=== PATIENT | female | born 1935 | race Two or more races ===

== ENCOUNTER 2020-03-15 13:30 | Inpatient (IN) | payer MEDICARE, BC ==
[~2020-03-15] VITALS: Ht 167.6 cm; Wt 67.6 kg
--- NOTE | 2020-03-15 13:41 | NUR ---
ZULEMA SENIOR [employer] NET DEVELOPER AT BEDSIDE FOR EVAL
[2020-03-15 13:59] LABS: BASOPHILS % (AUTO) 0.3 % (0.0-2.0); EOSINOPHILS % (AUTO) 0.3 % (0.0-6.0); HEMATOCRIT 38 % (33-45); HEMOGLOBIN 12.4 g/dL (11.5-14.8); LYMPHOCYTES # (AUTO) 0.8 /CMM (0.8-4.8); LYMPHOCYTES % (AUTO) 7.1 % (20.0-44.0); MEAN CORPUSCULAR HGB CONC 33 g/dl (31.0-36.0); MEAN CORPUSCULAR VOLUME 86 fL (82-100); MONOCYTES # (AUTO) 0.8 /CMM (0.1-1.30); MONOCYTES % (AUTO) 7.1 % (2.0-12.0); NEUTROPHILS # (AUTO) 10.1 /CMM (1.8-8.9); NEUTROPHILS % (AUTO) 85.2 % (43.0-81.0); PLATELET COUNT (AUTO) 271 /CMM (150-450); RED BLOOD CELL COUNT(AUTO) 4.38 MIL/uL (4.0-5.2); WHITE BLOOD COUNT (AUTO) 11.8 K/uL (4.3-11.0)
[2020-03-15] MEDS ORDERED: MORPHINE SULFATE INJ 2 MG/ML DISP.SYRIN IV ONE (14:00)
[2020-03-15] MEDS ORDERED: ONDANSETRON HCL/PF 4 MG/2 ML VIAL IV ONE (14:00)
[2020-03-15] MEDS ORDERED: ONDANSETRON HCL/PF 4 MG/2 ML VIAL ONE (14:06)
[2020-03-15] MEDS ORDERED: MORPHINE SULFATE INJ 4 MG/ML DISP.SYRIN ONE (14:07)
[2020-03-15 14:09] LABS: CREATININE 0.9 mg/dL (0.6-1.3)
--- NOTE | 2020-03-15 14:10 | NUR ---
RADIOLOGY AT BEDSIDE FOR R HIP AND CHEST XRAY.
[2020-03-15 14:19] LABS: CALCIUM, SERUM 10.3 mg/dL (8.5-10.1)
[2020-03-15] MEDS ORDERED: MONT10TA22 PO (14:36)
--- NOTE | 2020-03-15 14:42 | NUR ---
ORTHO ON-CALL PAGED
[2020-03-15] MEDS ORDERED: HYDROMORPHONE 1 MG/1 ML DISP.SYRIN ONE (14:55)
[2020-03-15] MEDS ORDERED: HYDROMORPHONE 1 MG/1 ML DISP.SYRIN IV ONE (15:00)
[2020-03-15] MEDS ORDERED: HYDROCODONE/APAP 10/325MG 1 EA TABLET PO PRN (16:00)
[2020-03-15] MEDS ORDERED: MAG HYDROX/AL HYDROX/SIMETH 30 ML UDC PO PRN (16:00)
[2020-03-15] MEDS ORDERED: ZOLPIDEM TARTRATE 5 MG TABLET PO PRN (16:00)
[2020-03-15] MEDS ORDERED: ACETAMINOPHEN 325 MG TABLET PO PRN (16:00)
[2020-03-15] MEDS ORDERED: Z GUARD REMEDY 2 OZ OINT TP PRN (16:00)
[2020-03-15] MEDS ORDERED: HYDROCODONE/APAP 5/325MG 1 EACH TABLET PO PRN (16:00)
--- NOTE | 2020-03-15 16:12 | NUR ---
REPORT GIVEN TO PHILIP. WARE AWAITING TRANSFER TO FLOOR.
--- NOTE | 2020-03-15 16:28 | NUR ---
IVAN,SON, CALLED TO GET AN UPDATE, IVETTSALBARO,, CALLED FOR UPDATE ON SURGEON/SURGERY
[2020-03-15 17:00] VITALS: BP 155/84
--- NOTE | 2020-03-15 17:00 | NUR ---
M/S MANAGER OF APPLICATION DEVELOPMENT: ADMISSION ADMITTED THIS 84 YEAR OLD FEMALE PT FROM [facility] WITH DX: RIGHT FEMORAL HEAD FRACTURE. AWAKE, A/OX4. SAFELY TRANSFERRED TO BED WITH 4 ASSISTANCE. PROVIDED WITH A HOSPITAL GOWN, KEPT COMFORTABLE. SKIN ASSESSMENT COMPLETED AND PHOTOS TAKEN. ORIENTED TO ROOM AND SURROUNDINGS. DINNER ORDERED. VSS. INSTRUCTED TO CALL FOR ASSISTANCE. WILL CONTINUE TO MONITOR.
[2020-03-15] MEDS: ENOXAPARIN SODIUM 40 MG/0.4 ML DISP.SYRIN SQ SCH (18:15)
--- NOTE | 2020-03-15 18:30 | NUR ---
M/S BIOINFORMATICS SPECIALIST: NOTES PT HAS NO APPETITE. FLUIDS GIVEN. NEEDS ATTENDED. INSTRUCTED TO CALL FOR ASSISTANCE.
--- NOTE | 2020-03-15 19:00 | NUR ---
M/S MUSHROOM GROWER: NOTES REPORT GIVEN TO PIOTR (RN) FOR CONTINUITY OF CARE.
[2020-03-15 20:00] VITALS: BP 123/89
--- NOTE | 2020-03-15 20:00 | NUR ---
PT IN BED ALERT AND ORIENTED X4, ROOM AIR, S/P FALL, COMPLAINING OF PAIN, PETERSEN CATHETER, FALL PRECAUTION, WILL CONTINUE TO MONITOR
[2020-03-15 22:00] VITALS: BP 123/89
[2020-03-15] MEDS: IV NS 0.9% 1,000 ML IV PRN (22:04)
[2020-03-15] MEDS: ONDANSETRON HCL/PF 4 MG/2 ML VIAL IVP PRN (22:20)
[2020-03-15] MEDS: HYDROMORPHONE INJ 2 MG/ML DISP.SYRIN IV PRN (22:20)
[2020-03-16] MEDS: HYDROMORPHONE INJ 2 MG/ML DISP.SYRIN IV PRN ×2 (05:43→14:40)
--- NOTE | 2020-03-16 06:30 | NUR ---
ALERT AND ORIENTED X4, ROOM AIR, S/P FALL, WITH RIGHT HIP FRACTURE, EPISODE OF NAUSEA, RELIEVED BY ZOFRAN, GIVEN DILAUDID 1 MG IVPB X2 WITH ADEQUATE RELIEF, NS AT 75 ML/HR, PETERSEN CATHETER DRAINING WELL, PLANNED RIGHT HIP HEMIARTHROPLASTY, NEEDS CONSENT.
[2020-03-16 08:00] VITALS: BP 145/75
--- NOTE | 2020-03-16 08:00 | NUR ---
RECEIVED PT. THIS AM SOME NAUSEA,SOME DISCOMFORT.VS STABLE.IV INFUSING.
[2020-03-16 08:16] LABS: THYROID STIMULATING HORMONE 3.079 uIU/mL (0.358-3.74)
[2020-03-16 08:20] LABS: CALCIUM, SERUM 9.7 mg/dL (8.5-10.1); CREATININE 0.6 mg/dL (0.6-1.3); PHOSPHORUS 3.1 mg/dL (2.5-4.9); POTASSIUM 4.3 mmol/L (3.5-5.1)
[2020-03-16] MEDS: ONDANSETRON HCL/PF 4 MG/2 ML VIAL IVP PRN ×3 (08:54→22:54)
[2020-03-16] MEDS: MONTELUKAST SODIUM (10MG) 10 MG TABLET PO SCH (09:00)
[2020-03-16 09:58] LABS: BASOPHILS # (AUTO) 0.1 /CMM (0.0-0.2); BASOPHILS % (AUTO) 0.7 % (0.0-2.0); EOSINOPHILS % (AUTO) 2.1 % (0.0-6.0); HEMATOCRIT 34 % (33-45); HEMOGLOBIN 11.2 g/dL (11.5-14.8); LYMPHOCYTES # (AUTO) 1.8 /CMM (0.8-4.8); LYMPHOCYTES % (AUTO) 20.5 % (20.0-44.0); MEAN CORPUSCULAR HGB CONC 33 g/dl (31.0-36.0); MEAN CORPUSCULAR VOLUME 86 fL (82-100); MONOCYTES # (AUTO) 0.7 /CMM (0.1-1.30); MONOCYTES % (AUTO) 8.2 % (2.0-12.0); NEUTROPHILS % (AUTO) 68.5 % (43.0-81.0); PLATELET COUNT (AUTO) 258 /CMM (150-450); RED BLOOD CELL COUNT(AUTO) 3.93 MIL/uL (4.0-5.2); WHITE BLOOD COUNT (AUTO) 8.7 K/uL (4.3-11.0)
--- NOTE | 2020-03-16 10:30 | NUR ---
DR. SOLIS IN RN MENTIONED SOME NAUSEA POSSIBLY DUE TO DILAUDID. NO CHANGES.
[2020-03-16] MEDS: IV NS 0.9% 1,000 ML IV PRN (11:11)
[2020-03-16 16:00] VITALS: BP 132/72
--- NOTE | 2020-03-16 18:30 | NUR ---
MED. X 2 FOR NAUSEA AND X 1 FOR PAIN.FAMILY CALLING IN OFTEN. PT. ON PHONE MOST OF DAY WITH FAMILY.CONSENTS SIGNED.PLANS FOR SURG. TOMORROW.TO BE NPO AFTER MIDNIGHT.
--- NOTE | 2020-03-16 19:26 | NUR ---
MS RN: RECEIVED PATIENT Patient in bed, awake. On room air, tolerating well. Reports some discomfort in her right hip when she change position in bed. Plan for surgery tomorrow. IVF infusing. Jacobson cath to gravity. Fall precaution maintained.
[2020-03-16 20:00] VITALS: BP 145/75
[2020-03-16 20:30] VITALS: BP 145/75
[2020-03-16] MEDS: ENOXAPARIN SODIUM 40 MG/0.4 ML DISP.SYRIN SQ SCH (21:00)
[2020-03-16] MEDS: MAGNESIUM HYDROXIDE 30 ML UDC PO PRN (21:05)
[2020-03-17] VITALS (11 sets, daily range): BP systolic 118–172; BP diastolic 61–90
[2020-03-17] MEDS: HYDROMORPHONE INJ 2 MG/ML DISP.SYRIN IV PRN ×3 (05:17→22:11)
[2020-03-17] MEDS: ONDANSETRON HCL/PF 4 MG/2 ML VIAL IVP PRN (05:20)
[2020-03-17] MEDS: IV NS 0.9% 1,000 ML IV PRN (05:21)
--- NOTE | 2020-03-17 06:27 | NUR ---
MS RN: END OF SHIFT REPORT Patient in bed, stable Oxygen saturation in room air. IVF infusing, NPO MN. Right hip pain managed with PRN Dilaudid. Plan for procedure Right hip hemiarthroplasty today, patient consented procedure. Fall precaution maintained.
--- NOTE | 2020-03-17 07:30 | NUR ---
MS/RN Opening note Received patient in bed, AO x 3, able to responds all stimuli. Denies pain or any discomfort. Respiratory even and unlabored in room air. Skin is warm to touch, kept clean/dry, intact IV site running NS at 75 ml, no s/s of over fluid observed. Patient going orthoplasty procedure at 0800, stable in condition and v/s. Call light within reach, will continue to monitor
[2020-03-17] MEDS ORDERED: BACITRACIN 50000 UNITS/VIAL ONE ×2 (07:37→08:42)
[2020-03-17] MEDS ORDERED: BUPIVACAINE 0.5 % PF 150 MG/30 ML VIAL ONE (07:37)
[2020-03-17] MEDS ORDERED: ANESTHESIA TRAY IN PYXIS 1 EA TRAY MC ONE (07:38)
[2020-03-17] MEDS ORDERED: ROCURONIUM BROMIDE 50 MG/5 ML ONE (07:45)
[2020-03-17] MEDS ORDERED: FENTANYL PF 100MCG/2ML AMPUL ONE ×2 (07:45→10:42)
[2020-03-17 07:51] LABS: BASOPHILS # (AUTO) 0.1 /CMM (0.0-0.2); EOSINOPHILS % (AUTO) 3.4 % (0.0-6.0); HEMATOCRIT 33 % (33-45); HEMOGLOBIN 10.7 g/dL (11.5-14.8); LYMPHOCYTES # (AUTO) 1.8 /CMM (0.8-4.8); MEAN CORPUSCULAR HGB CONC 33 g/dl (31.0-36.0); MEAN CORPUSCULAR VOLUME 86 fL (82-100); MONOCYTES # (AUTO) 0.8 /CMM (0.1-1.30); MONOCYTES % (AUTO) 10.4 % (2.0-12.0); NEUTROPHILS # (AUTO) 5.2 /CMM (1.8-8.9); NEUTROPHILS % (AUTO) 63.2 % (43.0-81.0); PLATELET COUNT (AUTO) 266 /CMM (150-450); RED BLOOD CELL COUNT(AUTO) 3.79 MIL/uL (4.0-5.2); WHITE BLOOD COUNT (AUTO) 8.2 K/uL (4.3-11.0)
--- NOTE | 2020-03-17 08:00 | NUR ---
Patient left procedure accompanied by 2 staff, in stable condition, v/s:bp-140/72, p-76, r-18, t-98.1, p-95.
[2020-03-17 08:11] LABS: CREATININE 0.6 mg/dL (0.6-1.3); PHOSPHORUS 2.1 mg/dL (2.5-4.9)
[2020-03-17] MEDS: MONTELUKAST SODIUM (10MG) 10 MG TABLET PO SCH (08:48)
[2020-03-17] MEDS ORDERED: TRANEXAMIC ACID 1,000 MG in IV NS 0.9% 50 ML IV ONE (09:00)
[2020-03-17] MEDS ORDERED: VANCOMYCIN 1 GM VIAL ONE (09:49)
[2020-03-17 10:49] LABS: BASOPHILS # (AUTO) 0.1 /CMM (0.0-0.2); BASOPHILS % (AUTO) 0.5 % (0.0-2.0); HEMATOCRIT 34 % (33-45); LYMPHOCYTES % (AUTO) 7.2 % (20.0-44.0); MEAN CORPUSCULAR HGB CONC 32 g/dl (31.0-36.0); MEAN CORPUSCULAR VOLUME 87 fL (82-100); MONOCYTES # (AUTO) 0.5 /CMM (0.1-1.30); NEUTROPHILS # (AUTO) 11.7 /CMM (1.8-8.9); NEUTROPHILS % (AUTO) 87.3 % (43.0-81.0); PLATELET COUNT (AUTO) 255 /CMM (150-450); RED BLOOD CELL COUNT(AUTO) 3.93 MIL/uL (4.0-5.2); WHITE BLOOD COUNT (AUTO) 13.4 K/uL (4.3-11.0)
[2020-03-17] MEDS ORDERED: MIDAZOLAM HCL 2 MG/2ML VIAL ONE (10:54)
[2020-03-17] MEDS ORDERED: HYDROCODONE/APAP 5/325MG 1 EACH TABLET PO PRN (11:30)
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
[2020-03-17] MEDS ORDERED: HALOPERIDOL DECANOATE IM 100 MG/ML AMPUL IM ONE (12:30)
[2020-03-17] MEDS: IV LR 1000 ML 1,000 ML IV PRN (12:44)
[2020-03-17] MEDS ORDERED: HALOPERIDOL LACTATE INJ 5 MG/ML VIAL IM ONE (14:00)
[2020-03-17] MEDS ORDERED: K PHOS NEUTRAL 250 MG TABLET PO ONE (15:30)
[2020-03-17] MEDS: CEFAZOLIN 2 GM in IV D5W 100 ML IV SCH (17:24)
--- NOTE | 2020-03-17 18:30 | NUR ---
MS/RN Closing note Patient in bed, sleeping comfortably. Given pain medication around 1730 for s/p orthoplasty, skin is warm to touch, kept clean/dry, intact IV site. Respiratory even and unlabored with room air, no sob observed. Vital sign stable. Call light within reach, will endorse assembler 1st shift.
--- NOTE | 2020-03-17 19:40 | NUR ---
MS RN OPENING NOTES RECEIVED PATIENT RESTING IN BED COMFORTABLY; A/OX2-3, FORGETFUL; PATIENT ON ROOM AIR, NO SOB NOTED; TOLERATING ROOM AIR WELL; BREATHING EVEN AND UNLABORED; PER AM SHIFT, HALDOL WAS GIVEN, WILL MONITOR; L FA # 22 RUNNING NS @ 75ML/HR, TOLERATING IVF WELL; PETERSEN INTACT; FLOWING YELLOW OUTPUT; SAFETY PRECAUTIONS IN PLACE; BED LOCKED IN LOW POSITION; SIDE RAILS X2; CALL LIGHT WITHIN REACH; WILL CONTINUE TO MONITOR
[2020-03-18] MEDS: CEFAZOLIN 2 GM in IV D5W 100 ML IV SCH (01:40)
[2020-03-18] MEDS: HYDROMORPHONE INJ 2 MG/ML DISP.SYRIN IV PRN ×5 (02:10→20:25)
[2020-03-18] MEDS: ONDANSETRON HCL/PF 4 MG/2 ML VIAL IVP PRN (02:20)
--- NOTE | 2020-03-18 06:36 | NUR ---
MS RN CLOSING NOTES PATIENT RESTING IN BED COMFORTABLY; A/OX2-3, FORGETFUL; BREATHING EVEN AND UNLABORED; NO SOB NOTED; PATIENT TOLERATING ROOM AIR WELL; L FA #22 INFUSING LR @ 75ML/HR; PATIENT TOLERATING IVF WELL; PETERSEN CATH IN PLACE; FLOWING YELLOW OUTPUT; ALL NEEDS RENDERED; PATIENT ABLE TO MAKE NEEDS KNOWN; SAFETY PRECAUTIONS IN PLACE; BED LOCKED IN LOW POSITION; SIDE RAILS X2; CALL LIGHT WITHIN REACH; WILL ENDORSE WOODY TO ONCOMING NURSE
--- NOTE | 2020-03-18 07:30 | NUR ---
MS/RN Opening note Received patient AO x 2-3, confused and forgetful, able to responds all stimuli. Pt stated pain occasionally on s/p right hip orthoplasty. Skin is warm to touch, clean/dry. Respiratory even and unlabored with room air. kept lower position of the bed with locked wheel for safety, call light within reach, will continue to monitor.
[2020-03-18 08:00] VITALS: BP 132/74
[2020-03-18 08:37] LABS: BASOPHILS % (AUTO) 0.4 % (0.0-2.0); EOSINOPHILS % (AUTO) 0.5 % (0.0-6.0); HEMATOCRIT 32 % (33-45); HEMOGLOBIN 10.6 g/dL (11.5-14.8); LYMPHOCYTES # (AUTO) 1.3 /CMM (0.8-4.8); LYMPHOCYTES % (AUTO) 14.7 % (20.0-44.0); MEAN CORPUSCULAR HGB CONC 33 g/dl (31.0-36.0); MEAN CORPUSCULAR VOLUME 86 fL (82-100); MONOCYTES # (AUTO) 1.2 /CMM (0.1-1.30); MONOCYTES % (AUTO) 13.2 % (2.0-12.0); NEUTROPHILS # (AUTO) 6.5 /CMM (1.8-8.9); NEUTROPHILS % (AUTO) 71.2 % (43.0-81.0); PLATELET COUNT (AUTO) 259 /CMM (150-450); RED BLOOD CELL COUNT(AUTO) 3.68 MIL/uL (4.0-5.2); WHITE BLOOD COUNT (AUTO) 9.1 K/uL (4.3-11.0)
[2020-03-18 08:55] LABS: ALBUMIN 2.9 g/dL (3.4-5.0); BILIRUBIN,TOTAL 0.5 mg/dL (0.2-1.0); CALCIUM, SERUM 9.1 mg/dL (8.5-10.1); CREATININE 0.6 mg/dL (0.6-1.3); PHOSPHORUS 3.1 mg/dL (2.5-4.9); POTASSIUM 3.9 mmol/L (3.5-5.1); TOTAL PROTEIN, SERUM 6.3 g/dL (6.4-8.2)
[2020-03-18] MEDS: MONTELUKAST SODIUM (10MG) 10 MG TABLET PO SCH (09:38)
[2020-03-18] MEDS: ENOXAPARIN SODIUM 40 MG/0.4 ML DISP.SYRIN SQ SCH (09:40)
--- NOTE | 2020-03-18 10:38 | NUR ---
WOUND CARE CONSULT: PT PRESENTS WITH RT ELBOW DRY ABRASION, PRESENT ON ADMISSION. PT IS CONTINENT AT THIS TIME. RT HIP SURGICAL DRESSING DRY AND INTACT. DISCUSSED SKIN PROTECTION WITH NURSING STAFF. WILL SEE PRN. KIRKLAND IN AGREEMENT WITH PLAN OF CARE. CURRENT TRAE SCORE IS 16. Addendum: 03/18/20 at 1039 by SPEEDY ESPARZA WNDNU Amended: Links added.
[2020-03-18] MEDS: IV LR 1000 ML 1,000 ML IV PRN (12:42)
[2020-03-18 16:00] VITALS: BP 144/72
--- NOTE | 2020-03-18 18:45 | NUR ---
MS/RN Closing note Patient in bed comfortably, does no c/o pain or any this comfort related s/p orthoplasty on right hip. Skin is warm to touch, kept clean/dry, intact IV site. Respiratory even and unlabored in room air. Keep lower position of the bed with locked wheel. Call light within reach, will endorse warehouse shift supervisor.
--- NOTE | 2020-03-18 19:35 | NUR ---
MS RN OPENING NOTES PATIENT RECEIVED RESTING IN BED COMFORTABLY; A/OX3; BREATHING EVEN AND UNLABORED; TOLERATING ROOM AIR WELL; NO SOB NOTED; NO S/S OF ACUTE RESPIRATORY DISTRESS; L FA # 22 INFUSING LR @ 75ML/HR; TOLERATING IVF WELL; SAFETY PRECAUTIONS IMPLEMENTED; BED LOCKED IN LOW POSITION; SIDE RAILS X2; CALL LIGHT WITHIN REACH; WILL CONTINUE TO MONITOR
[2020-03-18 20:00] VITALS: BP 147/62
[2020-03-18 20:33] VITALS: BP 147/62
[2020-03-19] MEDS: ONDANSETRON HCL/PF 4 MG/2 ML VIAL IVP PRN (00:16)
--- NOTE | 2020-03-19 00:25 | NUR ---
MS RN NOTES PATIENT REPORTED FEELING NAUSEATED; NO EMESIS PRESENT; ZOFRAN ADMINISTERED ORDERED; PATIENT WOULD LIKE TO WAIT PRIOR TO RECEIVING PAIN MEDICATION; PATIENT WOULD LIKE TO SEE IF SHE IS ABLE TO CONTROL PAIN WITHOUT PAIN MEDICATIONS Q3HRS; WILL CONTINUE TO MONITOR AND ASSESS
[2020-03-19] MEDS: HYDROMORPHONE INJ 2 MG/ML DISP.SYRIN IV PRN ×2 (03:25→15:10)
[2020-03-19] MEDS: IV LR 1000 ML 1,000 ML IV PRN (05:00)
--- NOTE | 2020-03-19 06:28 | NUR ---
MS RN CLOSING NOTES PATIENT RESTING IN BED COMFORTABLY; A/OX3; BREATHING EVEN AND UNLABORED; NO SOB NOTED; NO DISTRESS NOTED; L FA #22 INFUSING LR @ 75ML/HR; PATIENT TOLERATING IVF WELL; IV SITE INTACT AND PATENT, FLUSHING WELL; NO S/S OF REDNESS OR INFILTRATION NOTED; ALL NEEDS RENDERED; PATIENT TOLERATING DIAPER CHANGE DURING SHIFT WITH MINIMAL PAIN MEDICATION; ALL NEEDS RENDERED; SAFETY PRECAUTIONS IN PLACE; SIDE RAILS X2; CALL LIGHT WITHIN REACH; WILL ENDORSE WOODY TO ONCOMING NURSE
--- NOTE | 2020-03-19 07:25 | NUR ---
MS RN NOTES ALERT AND AWAKE ORIENTED X2-3. PATIENT WITH EPISODES OF FORGETFULNESS. HOB ELEVATED. NO SOB. DENIES ANY C/O PAIN NOR DISCOMFORT. LEFT FA #22 INTACT AND PATENT INFUSING LR @ 75ML/HR CHARO WELL. BED IN LOWEST POSITION, LOCKED. BED ALARM ON. CALL LIGHT WITHIN REACH. ABLE TO VERBALIZE NEEDS.
[2020-03-19 08:00] VITALS: BP 135/67
[2020-03-19 08:34] LABS: BASOPHILS % (AUTO) 0.5 % (0.0-2.0); EOSINOPHILS % (AUTO) 0.9 % (0.0-6.0); HEMATOCRIT 31 % (33-45); HEMOGLOBIN 10.4 g/dL (11.5-14.8); LYMPHOCYTES # (AUTO) 1.5 /CMM (0.8-4.8); LYMPHOCYTES % (AUTO) 18.2 % (20.0-44.0); MEAN CORPUSCULAR HGB CONC 33 g/dl (31.0-36.0); MEAN CORPUSCULAR VOLUME 85 fL (82-100); MONOCYTES # (AUTO) 0.9 /CMM (0.1-1.30); MONOCYTES % (AUTO) 11.6 % (2.0-12.0); NEUTROPHILS # (AUTO) 5.6 /CMM (1.8-8.9); NEUTROPHILS % (AUTO) 68.8 % (43.0-81.0); PLATELET COUNT (AUTO) 239 /CMM (150-450); RED BLOOD CELL COUNT(AUTO) 3.68 MIL/uL (4.0-5.2); WHITE BLOOD COUNT (AUTO) 8.1 K/uL (4.3-11.0)
[2020-03-19] MEDS: MONTELUKAST SODIUM (10MG) 10 MG TABLET PO SCH (08:44)
[2020-03-19] MEDS: ENOXAPARIN SODIUM 40 MG/0.4 ML DISP.SYRIN SQ SCH (08:45)
[2020-03-19] MEDS: MAGNESIUM HYDROXIDE 30 ML UDC PO PRN (08:46)
[2020-03-19 08:48] LABS: ALANINE AMINOTRANSFERASE 18 U/L (12-78); ALBUMIN 2.6 g/dL (3.4-5.0); ALKALINE PHOSPHATASE 58 U/L (46-116); ASPARTATE AMINOTRANSFERASE 23 U/L (15-37); BILIRUBIN,TOTAL 0.5 mg/dL (0.2-1.0); CARBON DIOXIDE 31 mmol/L (21-32); CHLORIDE 98 mmol/L (98-107); CREATININE 0.5 mg/dL (0.6-1.3); GLUCOSE 112 mg/dL (74-106); MAGNESIUM 1.9 mg/dL (1.8-2.4); PHOSPHORUS 2.2 mg/dL (2.5-4.9); POTASSIUM 3.8 mmol/L (3.5-5.1); SODIUM SERUM 133 mmol/L (136-145); TOTAL PROTEIN, SERUM 6.1 g/dL (6.4-8.2); UREA NITROGEN, BLOOD 10 mg/dL (7-18)
[2020-03-19] MEDS ORDERED: K PHOS NEUTRAL 250 MG TABLET PO ONE (11:30)
[2020-03-19] MEDS ORDERED: ENOX40DI SQ (14:50)
[2020-03-19 15:54] VITALS: BP 120/66
--- NOTE | 2020-03-19 19:36 | NUR ---
MS RN NOTES ALERT AND AWAKE ORIENTED X2-3. NO S/S OF RESPIRATORY DISTRESS. DENIES ANY C/O PAIN NOR DISCOMFORT. PAT[facility] FOR [facility] TO [facility]. CALLED AND SPOKE TO MAE [phone] AND INFORMED RECEIVING RN THAT PATIENT WILL BE UNDER DR. HEATHER PAYTON. DISCHARGE INSTRUCTIONS AND PACKET GIVEN TO EMT AND VIA PHONE. IV ACCESS REMOVED WITH CATHETER TIP INTACT. ALL BELONGINGS ACCOUNTED FOR AND MEDICATION. SON, IVAN AWARE OF TRANSFER. PATIENT PICKED UP BY EMT AND REPORT GIVEN.
--- NOTE | 2020-03-19 20:01 | NUR ---
MS RN NOTES REPORT GIVEN TO MAE AT [facility]. IV ACCESS REMOVED WITH CATHETER TIP INTACT WITH GAUZE DRESSING APPLIED. PATIENT LEFT VIA GURNEY ACCOMPANIED BY 2 EMT AND LEFT IN STABLE CONDITION.
== END 2020-03-19 20:00 | DRG 469 ==
LOC: ER 13:32 → MED 15:59
PROC: 0SRR0JZ Replacement of Right Hip Joint, Femoral Surface with Synthetic Substitute, Open Approach (ICD-10-PCS; principal; 2020-03-17)
DX: S72.011A Unspecified intracapsular fracture of right femur, initial encounter for closed fracture (principal); G93.41 Metabolic encephalopathy; N17.9 Acute kidney failure, unspecified; E44.0 Moderate protein-calorie malnutrition; E87.1 Hypo-osmolality and hyponatremia; G93.40 Encephalopathy, unspecified; W01.0XXA Fall on same level from slipping, tripping and stumbling without subsequent striking against object, initial encounter; E86.0 Dehydration; D72.829 Elevated white blood cell count, unspecified; E83.52 Hypercalcemia; I51.7 Cardiomegaly; Z79.899 Other long term (current) drug therapy; D64.9 Anemia, unspecified; I10 Essential (primary) hypertension; Y92.122 Bedroom in nursing home as the place of occurrence of the external cause
CPT/HCPCS: 36415; 71045-TC; 73501; 73502; 73552; 80048-TC; 80053-TC; 80061-TC; 83735-TC; 84100-TC; 84443-TC; 85025-TC; 85730-TC; 86850-TC; 87081-TC; 88305-TC; 88311-TC; 93307-TC; 97110-TC; 97116-TC; 97530-TC; A4216; A4217; A6209; C1776; G0378; J0690; J1100; J1170; J1630; J1631; J1650; J2250; J2270; J2405; J2704; J2710; J3010; J3370; J3490; J7030; J7060; J7120